=== PATIENT | male | born 1950 | race Caucasian/White ===

== ENCOUNTER 2020-12-08 10:11 | Emergency (ER) | payer OTHER ==
[~2020-12-08] VITALS: Ht 188 cm; Wt 87.4 kg
[2020-12-08 10:15] VITALS: BP 176/85
[2020-12-08] MEDS ORDERED: CEPH750C9 PO (10:58)
== END 2020-12-08 11:16 | disposition home or self-care (01) ==
LOC: ER 10:11
DX: R59.0 Localized enlarged lymph nodes (principal); J32.9 Chronic sinusitis, unspecified; Z88.0 Allergy status to penicillin; Z88.1 Allergy status to other antibiotic agents
CPT/HCPCS: 99283

== ENCOUNTER → 2021-02-18 | Outpatient (CLI) | payer OTHER ==
[~2021-02-18] MED LIST: CEPH750C9 PO
--- NOTE | 2021-02-18 17:31 | RAD ---
US HEAD/NECK SOFT TISSUE History:Reason: LT NECK LUMP / Spl. Instructions: / History: Comparison: None Technique: Sonographic examination of the left submandibular region Findings: Heterogeneous appearance of the left submandibular gland within the region of the patient's palpable concern measures 2.8 x 3.5 x 1.7 cm. The gland is more heterogeneous and increased in size compared t o the right submandibular gland. Impression: 1. Enlarged heterogeneous left submandibular gland, may represent sialoadenitis. Electronically signed by: Sammy Davis DO (02/18/2021 5:29 PM) [id number]
== END ==
LOC: US 10:00
PROVIDERS: ATTEND Family Medicine
DX: R22.1 Localized swelling, mass and lump, neck (principal)
CPT/HCPCS: 76536